=== PATIENT | female | born 1955 | race Caucasian/White ===

== ENCOUNTER 2018-11-30 04:57 | Day surgery (SDC) | payer OTHER ==
[2018-11-16 13:17] VITALS: BMI 29.2
--- NOTE | 2018-11-30 10:49 | HP ---
Satellite [facility] - Chief Complaint Chief Complaint: left cts - Past Medical History Allergies/Adverse Reactions: Allergies Allergy/AdvReac Type Severity Reaction Status Date / Time codeine Allergy Intermediate Swelling Verified 11/30/18 09:55 Penicillins Allergy Intermediate Swelling Verified 11/30/18 09:55 - Current Medications Current Medications: Home Medications Medication Instructions Recorded Aspirin 81 mg PO DAILY 11/16/18 Cholecalciferol (Vitamin D3) 1,000 unit PO DAILY 11/16/18 [Vitamin D3] Duloxetine HCl 20 mg PO DAILY 11/16/18 Iron,Carb/Vit C/Vit B12/Folic 1 each PO DAILY 11/16/18 [Iron 100 Plus Tablet] Ibuprofen [Advil -] 200 mg PO PRN 11/29/18 Oxycodone HCl/Acetaminophen 1 tab PO Q6H #20 tablet MDD 4 11/30/18 [Percocet 5-325 mg Tablet] Satellite Physical Exam - Physical Examination Vital Signs: Vital Signs Period Temp Pulse Resp BP Sys/[place] Pulse Ox Last 24 Hr 97.6 F 69 20 115/71 98 General Appearance: Well Nourished, Well Developed, Alert & Oriented x3 ENT: Clear Lung: Normal air movement Heart: Regular rate & rhythm Extremities: Other (left hand- + tinels, + phalens, emg + cts) Neurological: Intact, Alert, Oriented Satellite Impression/Plan - Impression/Plan Impression: left cts Operative Procedure: left ctr Date to be Performed: 11/30/18
--- NOTE | 2018-11-30 11:46 | OP ---
Operative Note - Note: Operative Date: 11/30/18 Pre-Operative Diagnosis: left CTS Operation: left CTR, tenosynovectomy Post-Operative Diagnosis: Same as Pre-op Surgeon: Brent Wise Anesthesiologist/TRANSPORTATION PROJECT MANAGER: Loy Campbell Anesthesia: Local, MAC Specimens Removed: tenosynovium Estimated Blood Loss (mls): 0 Drains, Volume Out (mls): 0 Blood Volume Replaced (mls): 0 Fluid Volume Replaced (mls): 500 Operative Report Dictated: Yes
[2018-11-30] MEDS ORDERED: LIDOCAINE HCL 1%, 10 MG/ML (20ML VIAL) ONE (11:47)
[2018-11-30] MEDS ORDERED: BUPIVACAINE HCL/PF 0.5% (5MG/ML) 10 ML VIAL ONE (11:47)
[2018-11-30] MEDS ORDERED: ceFAZolin SODIUM 1 GM VIAL IVPB ONE (12:22)
[2018-11-30] MEDS ORDERED: ACETAMINOPHEN 325 MG TABLET (FP) ONE (13:42)
[2018-11-30 14:26] VITALS: BP 137/76; PULSE 82; TEMP 98.1
[2018-11-30] MEDS ORDERED: oxyCODONE HCL 5 MG TABLET PO PRN ×2 (14:41)
[2018-11-30] MEDS ORDERED: ONDANSETRON 4 MG/2 ML VIAL IVPUSH PRN (14:41)
[2018-11-30] MEDS ORDERED: LACTATED RINGERS SOLUTION 1,000 ML IV SCH (14:45)
[2018-11-30] MEDS ORDERED: ACETAMINOPHEN 325 MG TABLET (FP) PO ONE (17:26)
--- NOTE | 2018-11-30 23:50 | OP ---
DATE OF OPERATION: 11/30/2018 PREOPERATIVE DIAGNOSIS: Left carpal tunnel syndrome. POSTOPERATIVE DIAGNOSIS: Left carpal tunnel syndrome. PROCEDURE: Left carpal tunnel release and tenosynovectomy. SURGEON: Abebe Lim M.D. ENTRY LEVEL ACCOUNT EXECUTIVE: None. ANESTHESIOLOGIST: Loy Campbell CRNA ANESTHESIA: LMA anesthesia with 12 mL 0.5% Marcaine, 1% lidocaine mixed DRAINS: None. COMPLICATIONS: None. SPECIMENS: Tenosynovium left wrist. BLOOD LOSS: Minimal. BLOOD GIVEN: None. FLUID REPLACEMENT: 500 mL INDICATION: This patient is a 63-year-old female with the preoperative diagnosis of severe recurrent left carpal tunnel syndrome. After understanding the potential risks, complications, alternatives and benefits of surgery versus nonsurgical treatment, the patient elected to undergo this procedure. DESCRIPTION OF PROCEDURE: The patient was brought to the operating room, peripheral IV placed and intravenous sedation was given. One gram of intravenous Ancef was given. MAC anesthesia was induced. A tourniquet was applied to the left upper arm and the left upper extremity was prepped and draped in sterile fashion. The entire case was done under 3.8 loupe magnification. A marking pen was utilized to eloy out a longitudinal incision in an already existing skin crease. Twenty mL of 0.5% Marcaine mixed with 1% Lidocaine was injected in and around the surgical incision. The left upper extremity was elevated, exsanguinated with an Esmarch bandage and the tourniquet inflated to 250 mmHg. A No. 15 scalpel blade was utilized to cut down through the skin. Subcutaneous hemostasis was achieved with the bipolar cautery. Dissection was done through the superficial palmar fascia. Self-retaining retractors were placed into the wound. Under direct visualization, the transverse carpal ligament was transected with a No. 15 scalpel blade, exposing the median nerve and the contents of the carpal tunnel. The distal and proximal extents of the release were completed with a Littler scissor and checked with irrigation and my small finger. They were seen to be complete. Limited dissection was done on the radial side of the median nerve and more extensive dissection was done on the ulnar side of the median nerve. The patients nerve was seen to be quite compressed by epineurium and therefore a limited epineurotomy was performed. A Ragnell retractor was used to gently retract the median nerve in a radial direction. The patient had a lot of tenosynovitis and therefore a tenosynovectomy was performed off all 9 flexor tendons. This was passed off the field as tenosynovium left wrist. The floor of the carpal tunnel was checked. There were no abnormal masses or ganglion cysts. The area was copiously irrigated and washed out and closure begun. Undyed 4-0 Vicryl was used to close the deep dermal layer. Final skin reapproximation was done with horizontal mattress 4-0 nylon sutures. The area was then washed and dried, covered with Xeroform, 4x4s, fluffs between the fingers, Webril and a 4-inch plaster roll was utilized to make a volar splint, which was then wrapped with Domenic and Coban. The tourniquet was taken down after a total tourniquet time of 21 minutes. There were no complications during the case. The patient tolerated the procedure well and was brought to the ambulatory recovery room in stable condition. No complications. ABEBE LIM M.D. [id number]
--- NOTE | 2018-12-05 14:14 | PATH ---
Surgical Pathology Report Patient Name: CHARLES VALE [facility]. Rec. #: [id number] /Age/Gender: 1955 (Age: 63) / F Account: [id number] Location: [facility] SURGICAL Taken: 11/30/2018 Received: 12/01/2018 Reported: 12/05/2018 Physicians: Brent Wise M.D. Specimen(s) Received LEFT TENOSYNOVIUM Clinical History Left carpal tunnel Final Diagnosis TENOSYNOVIUM, LEFT, RELEASE: TENOSYNOVIUM. Electronically Signed Emerald Dodd M.D. Gross Description Received in formalin labeled "left tenosynovium," is a 1.5 x 1.1 x 0.3 cm aggregate of cee-yellow portions of soft tissue, consistent with tenosynovium. The specimen is submitted in toto in one cassette. /12/01/201812/01/2018
== END 2018-11-30 14:45 | disposition home or self-care (01) ==
LOC: JASU-SURG 04:57
PROVIDERS: ATTEND Orthopaedic Surgery
PROC: 01N50ZZ Release Median Nerve, Open Approach (ICD-10-PCS; principal; 2018-11-30 10:30)
DX: G56.02 Carpal tunnel syndrome, left upper limb (principal)
CPT/HCPCS: 88304-TC